=== PATIENT | female | born 1985 | race Caucasian/White ===

== ENCOUNTER 2024-07-10 09:57 | Outpatient (CLI) | payer BC ==
[2024-07-10 18:40] LABS: ALBUMIN 3.9 g/dL (3.2-5.5); ALBUMIN/GLOBULIN RATIO 1.4 (1.0-2.2); ALKALINE PHOSPHATASE 78 IU/L (42-121); ALT ALANINE AMINOTRANSFERASE 9 IU/L (10-60); AST ASPARTATE AMINOTRANSFERASE 11 IU/L (10-42); BILIRUBIN,TOTAL 0.3 mg/dL (0.2-1.0); BUN - BLOOD UREA NITROGEN 8 mg/dL (6-20); CALCIUM 8.9 mg/dL (8.5-10.3); CARBON DIOXIDE - CO2 27 mmol/L (21-32); CHLORIDE 106 mmol/L (101-111); CHOLESTEROL 189 mg/dL; CREATININE 0.6 mg/dL (0.6-1.3); CRP - C-REACTIVE PROTEIN 2.7 mg/dL (<0.5); GFR - MDRD 111 (>89); GLUCOSE 96 mg/dL (74-104); HDL CHOLESTEROL 47 mg/dL; LDL CHOLESTEROL,CALCULATED 127 mg/dL; LDL/HDL RATIO 2.7 (<4.4); POTASSIUM 4.1 mmol/L (3.5-4.5); SODIUM 139 mmol/L (135-145); TOTAL PROTEIN 6.7 g/dL (6.4-8.9); TRIGLYCERIDES 76 mg/dL; VLDL CHOLESTEROL 15 mg/dL
[2024-07-10 18:59] LABS: THYROID STIMULATING HORMONE 1.45 uIU/mL (0.34-5.60)
[2024-07-10 21:46] LABS: ESTIMATED AVERAGE GLUCOSE 114 mg/dL (70-100); HEMOGLOBIN A1c% 5.6 % (4.27-6.07)
[2024-07-14 19:07] LABS: ANTINUCLEAR ANTIBODIES IFA Negative (.)
== END 2024-07-10 09:58 | disposition home or self-care (01) ==
LOC: LAB.N 09:57
PROVIDERS: ATTEND Family Medicine
DX: I10 Essential (primary) hypertension (principal); M79.89 Other specified soft tissue disorders; R63.5 Abnormal weight gain; F41.1 Generalized anxiety disorder; M25.50 Pain in unspecified joint; M79.18 Myalgia, other site
CPT/HCPCS: 36415; 80053; 80061; 83036; 83721; 84443; 85651; 86038; 86140